=== PATIENT | female | born 1990 | race African-American/Black ===

== ENCOUNTER 2016-08-06 21:30 | Emergency (ER) | payer OTHER ==
--- NOTE | ~2016-08-06 | CT4 ---
[facility] A Service of [facility] RADIOLOGY TEXT RESULTS PATIENT: KELLEY MOSLEY LOCATION: [facility] : 91 UNIT #: [id number] AGE: [address]: Shabbir Appiah SEX: F ORDER DR: [id number] [facility] [address]. [place], [place] [address] [id number] MR#: [id number] Acc #: [id number] NAME: KELLEY MOSLEY. : 1990 SEX: F STUDY DATE/TIME: 08/06/2016 21:54 UNIT: [facility] ROOM: STUDY DESCRIPTION: CT Abd and Pelv Wo Cont Attending Physician: Shabbir Appiah Ordering Physician: Ed Doctor [id number] [facility] Primary Care Physician: Armida Boston M.D. MEDICAL IMAGING REPORT This report is preliminary unless electronic signature is present EXAM CT abdomen and pelvis without contrast, 08/06/2016 HISTORY 26-year-old female with dysuria and vomiting and low back pain for 1 day. COMPARISON None TECHNIQUE Helical scan performed through the abdomen and pelvis without oral or IV contrast. Coronal and sagittal reformatted images. This CT exam was performed with one or more of the following radiation dose reduction techniques: automatic exposure control, adjustment of mA and/or kV according to patient size, and iterative reconstruction. FINDINGS Visualized lung bases are unremarkable. The liver, spleen, pancreas, both adrenal glands, and both kidneys are within expected limits allowing for lack of IV contrast. No urinary tract stones or hydronephrosis. Gallbladder surgically absent. Abdominal aorta is normal in course and caliber. Small bowel is unremarkable without obstruction. Appendix is normal. Colon unremarkable. No free fluid or free air. The urinary bladder, uterus, and both adnexa are unremarkable. No significant free pelvic fluid. No acute bony abnormality. IMPRESSION [facility] A Service of [facility] RADIOLOGY TEXT RESULTS PATIENT: KELLEY MOSLEY LOCATION: [facility] : 91 UNIT #: [id number] AGE: [address]: Shabbir Appiah SEX: F ORDER DR: 1. No acute abdominal or pelvic findings allowing for lack of IV contrast. 2. Negative for urinary tract stones or hydronephrosis. 3. Normal appendix. 4. Cholecystectomy. Dictated by... Mj Douglas M.D. THIS IS AN ELECTRONICALLY VERIFIED REPORT Mj Douglas M.D. at 08/07/2016 11:30 PM EDWIGE/john TD: 08/07/2016 12:02 JOB #: [id number] MEDICAL IMAGING REPORT Page 1 of 1 COPY
[2016-08-06 18:33] LABS: URINE SOURCE CLEAN CATCH
[2016-08-06 18:47] LABS: URINE APPEARANCE CLOUDY; URINE BILIRUBIN NEG (NEG); URINE BLOOD NEG (NEG); URINE COLOR YELLOW; URINE GLUCOSE NEG (NEG); URINE KETONE NEG (NEG); URINE LEUKOCYTE ESTERASE NEG (NEG); URINE NITRATE NEG (NEG); URINE PH 6.5 (5-8); URINE PROTEIN NEG (NEG)
[2016-08-06 18:52] LABS: CULTURE INDICATED? NO
[~2016-08-06 21:30] MED LIST: NEXIUM PO; NEXPLANON68 MG
[2016-08-06 23:08] LABS: BASOPHIL# 0.1 X10e3 (0-0.3); BASOPHIL% 1.1 % (0-2.5); EOSINOPHIL# 0.3 X10e3 (0-0.7); EOSINOPHIL% 4.6 % (0.0-7.0); HEMATOCRIT 39.5 % (35.0-45.0); HEMOGLOBIN 12.8 gm/dL (12.0-16.0); LYMPHOCYTE# 2.6 X10e3 (1.0-3.5); LYMPHOCYTE% 41.6 % (17.0-45.0); MEAN CELL VOLUME 91.4 FL (83-96); MEAN CORPUSCULAR HEMOGLOBIN 29.7 PG (28-34); MEAN CORPUSCULAR HGB CONC 32.5 g/dL (30-36); MEAN PLATELET VOLUME 8.1 FL (6.5-11.5); MONOCYTE# 0.3 X10e3 (0-1.0); MONOCYTE% 5.5 % (3.0-12.0); NEUTROPHIL% 47.2 % (40-75); PLATELET COUNT 239 X10e3 (140-420); RED BLOOD COUNT 4.33 X10e (3.90-5.30); RED CELL DISTRIBUTION WIDTH 13.6 % (11.0-15.5); WHITE BLOOD COUNT 6.3 X10e3 (4.0-10.5)
[2016-08-06 23:09] LABS: DIFF IND NO
[2016-08-06 23:52] LABS: BUN/CREATININE RATIO 11.66; CALCIUM SERUM 9.2 mg/dL (8.4-10.2); CREATININE SERUM 0.6 mg/dL (0.6-1.4); GLOM FILT RATE Estimated 146.8 mL/min (>60); POTASSIUM 3.7 mmol/L (3.5-5.1)
[2016-08-10 08:24] LABS: CHLAMYDIA TRACH Not Detected (Not Detected); N GONOR Not Detected (Not Detected)
== END 2016-08-07 01:15 | disposition home or self-care (01) ==
LOC: CED 21:30
PROVIDERS: Nurse Practitioner; Student in an Organized Health Care Education/Training Program
DX: R10.11 Right upper quadrant pain (principal); R10.31 Right lower quadrant pain; R11.2 Nausea with vomiting, unspecified; Z90.49 Acquired absence of other specified parts of digestive tract; F17.210 Nicotine dependence, cigarettes, uncomplicated
CPT/HCPCS: 36415; 74176; 80048; 81003; 84703; 85025; 87491; 87591; 87808; 87905; 96361; 96374; 99284; J2405

== ENCOUNTER → 2016-10-01 | Outpatient (CLI) | payer OTHER ==
--- NOTE | ~2016-10-01 | CT4 ---
[facility] A Service of [facility] RADIOLOGY TEXT RESULTS PATIENT: KELLEY MOSLEY [facility] UNIT #: [id number] AGE: [address]: SHOBHA KAMINSKI APRN SEX: F ORDER DR: [id number] [id number] [facility]. [place], [place] [address] [id number] O MR#: [id number] Acc #: [id number] NAME: KELLEY MOSLEY. : 1990 SEX: F STUDY DATE/TIME: 10/01/2016 12:04 UNIT: [facility]AT ROOM: STUDY DESCRIPTION: CT Abd and Pelv Wo Cont Attending Physician: Shobha Kaminski Aprn Referring Physician: Shobha Kaminski Aprn Ordering Physician: Vannesa Not Listed Primary Care Physician: Shobha Kaminski Aprn MEDICAL IMAGING REPORT This report is preliminary unless electronic signature is present EXAM CT abdomen and pelvis without contrast media HISTORY Upper abdominal pain since cholecystectomy last year; nausea vomiting and diarrhea. TECHNIQUE Axial imaging of the abdomen and pelvis was performed without contrast media. This CT exam was performed with one or more of the following radiation dose reduction techniques: automatic exposure control, adjustment of mA and/or kV according to patient size, and iterative reconstruction. FINDINGS Lung bases are clear. Liver, spleen, adrenal glands, pancreas, and both kidneys are normal. Gallbladder is surgically absent. No dilated or thickened loops of bowel are identified. The appendix is normal. Uterus is unremarkable. Bladder is normal. No adnexal masses or fluid collections are seen. CONCLUSION Status post cholecystectomy. Negative CT of the abdomen and pelvis. NOTE The patient does have a 3.6-cm right adnexal cyst that has increased in size since the last scan. Dictated by... Carlos Cordero M.D. [facility] A Service [facility] RADIOLOGY TEXT RESULTS PATIENT: KELLEY MOSLEY [facility] UNIT #: [id number] AGE: [address]: SHOBHA KAMINSKI APRN SEX: F ORDER DR: THIS IS AN ELECTRONICALLY VERIFIED REPORT Carlos Cordero M.D. at 10/01/2016 4:26 PM Beto TD: 10/01/2016 14:59 JOB #: [id number] MEDICAL IMAGING REPORT Page 1 of 1 COPY
== END | disposition home or self-care (01) ==
LOC: CCAT 11:40
DX: R10.84 Generalized abdominal pain (principal); K59.00 Constipation, unspecified; Z90.49 Acquired absence of other specified parts of digestive tract
CPT/HCPCS: 74176

== ENCOUNTER 2017-01-24 16:07 | Emergency (ER) | payer OTHER ==
[~2017-01-24] VITALS: Ht 154.9 cm; Wt 81.6 kg
--- NOTE | ~2017-01-24 | CR63 ---
[facility] A Service of [facility] RADIOLOGY TEXT RESULTS PATIENT: KELLEY MOSLEY LOCATION: [place] : 91 UNIT #: [id number] AGE: [address]: DEJA HERNÁNDEZ SEX: F ORDER DR: [id number] [facility] [address] [place], [place] [address] [id number] E MR#: [id number] Acc #: [id number] NAME: KELLEY MOSLEY. : 1990 SEX: F STUDY DATE/TIME: 01/24/2017 17:01 UNIT: [facility] ROOM: STUDY DESCRIPTION: CR Chest 2 View Attending Physician: Deja Hernández Aprn Ordering Physician: Deja Hernández Aprn Primary Care Physician: Shobha Kaminski Aprn MEDICAL IMAGING REPORT This report is preliminary unless electronic signature is present EXAM Two-view chest. HISTORY Cough, chest pain, shortness of air since yesterday. FINDINGS PA and lateral examination of the chest upright shows a good expansion of the parenchyma with a normal distribution of the pulmonary vascularity. There is no indication of congestion, effusion, infiltrate, tumor, or nodular density. The pleural reflections and diaphragmatic contours are normal. The cardiac silhouette and mediastinal anatomy is within normal limits. IMPRESSION Normal chest. Dictated by... Bettina Marvin M.D. THIS IS AN ELECTRONICALLY VERIFIED REPORT Bettina Marivn M.D. at 01/25/2017 3:11 PM Chance TD: 01/25/2017 09:42 JOB #: [id number] MEDICAL IMAGING REPORT Page 1 of 1 COPY
== END 2017-01-24 18:26 | disposition home or self-care (01) ==
LOC: CFTX 16:07 → CED 16:07 → CFTX 16:43
DX: J06.9 Acute upper respiratory infection, unspecified (principal); R07.81 Pleurodynia; F41.9 Anxiety disorder, unspecified; F32.9 Major depressive disorder, single episode, unspecified; Z90.49 Acquired absence of other specified parts of digestive tract; F17.210 Nicotine dependence, cigarettes, uncomplicated; Z91.018 Allergy to other foods
CPT/HCPCS: 71020; 84703; 87651; 94640; 99283